=== PATIENT | male | born 1965 | race African-American/Black ===

== ENCOUNTER 2025-05-20 12:36 | Emergency (ER) | payer MEDICAID ==
[~2025-05-20] VITALS: Ht 188 cm; Wt 125.0 kg
[2025-05-20 12:40] VITALS: O2SAT 99
[2025-05-20] MEDS: MORPHINE SULFATE 4 MG/ML INJ (FOR IV/IM USE) IV ONE (13:53)
[2025-05-20] MEDS: KETOROLAC 15MG/ML VIAL IV ONE (13:53)
[2025-05-20] MEDS: ACETAMINOPHEN 325MG TABLET PO ONE (13:53)
[2025-05-20] MEDS: HYDROCODONE/ACETAMINOPHEN 7.5/325MG TABLET PO ONE (15:27)
[2025-05-20 16:43] VITALS: BP 155/75; PULSE 99; RESP 19; TEMP 36.4; O2SAT 98
== END 2025-05-20 16:58 | disposition home or self-care (01) ==
LOC: ER 12:36
DX: S39.011A Strain of muscle, fascia and tendon of abdomen, initial encounter (principal); E11.9 Type 2 diabetes mellitus without complications; I10 Essential (primary) hypertension; Z88.5 Allergy status to narcotic agent; W34.00XA Accidental discharge from unspecified firearms or gun, initial encounter; Y93.89 Activity, other specified; Y92.89 Other specified places as the place of occurrence of the external cause; Y99.8 Other external cause status
CPT/HCPCS: 73502; 99284; Z7610